=== PATIENT | male | born 1935 | race Caucasian/White ===

== ENCOUNTER 2017-12-07 14:27 | Observation (INO) | payer MEDICARE, OTHER ==
[~2017-12-07] VITALS: Ht 177.8 cm; Wt 77.1 kg
--- NOTE | ~2017-12-07 | CN ---
PATIENT NAME:NINI DIAZ MEDICAL RECORD: [id number] : 31 LOCATION:[facility] D.2113 ADMIT DATE: 12/07/17 ACCOUNT: [id number] CONSULTING PHYSICIAN: MARK BEAVERS MD REFERRING PHYSICIAN: NAN BRANNON DO DATE OF CONSULTATION: 12/08/2017 DIAGNOSIS: Syncope. HISTORY OF PRESENT ILLNESS: This is a gentleman who had an episode of syncope yesterday. No cardiac symptomatology. No palpitations or chest pain. His echocardiogram was performed today. It is normal. Telemetry has been normal. EKG is normal. Laboratory values are normal. Neurologic workup was normal as well. PHYSICAL EXAMINATION: GENERAL APPEARANCE: Well-nourished, well-developed, appears stated age. Level of distress, comfortable. PSYCHIATRIC: Mental status, alert, normal affect. Orientation, oriented to time, place and person. EYES: Lids and conjunctiva, noninjected. No discharge, no pallor. ENT: Lips, teeth, gums, normal dentition. Oropharynx, no cyanosis, no pallor. NECK: Carotid arteries, bilateral normal upstroke, no bruits, no thrills. JUGULAR VEINS: No jugular venous pressure or distention. CERVICAL LYMPH NODES: Nontender, nonenlarged. THYROID: Not enlarged. Nontender. No nodules. LUNGS: Respiratory effort, unlabored. CHEST: Normal curvature. No thoracic deformity. No chest wall tenderness. Percussion, resonant. Auscultation, clear. No wheezes, no rales, no rhonchi. CARDIOVASCULAR: Precordial exam, nondisplaced. No heaves or pericardial thrills. Rate and rhythm, regular. Heart sounds, normal S1, normal S2. No S3, no gallop, no rub. Systolic murmur, not heard. Diastolic murmur, not heard. EXTREMITIES: No cyanosis, no edema. Peripheral pulses, full and equal in all extremities, except as noted. No bruits appreciated. ABDOMEN: Soft, nondistended. Normal aorta. No bruit. Nontender. No masses. Liver, nontender, no hepatomegaly. Spleen, nontender, no splenomegaly. MUSCULOSKELETAL: No joint tenderness. No joint swelling. No erythema. NEUROLOGICAL: Normal gait, normal strength, normal tone. SKIN: Warm and dry. OVERALL IMPRESSION: Syncope, no reason to think this is cardiac in nature or cardiac testing is normal, no other cardiac workup or treatment is necessary. TRANSINT:[id number] Voice Confirmation ID: [id number] DOCUMENT ID: [id number] MARK BEAVERS MD at 1325 CC: [id number] DICTATION DATE: 12/08/17 1223 GROUP EXERCISE MANAGER: 12/08/17 1514 DIS IN 12/09/17 [place] [id number] [place] [id number]
--- NOTE | ~2017-12-07 | EC ---
PATIENT:NINI DIAZ DATE OF SERVICE: 12/07/17 SEX: M MEDICAL RECORD: [id number] DATE OF : 31 LOCATION:D.M2 D.211 AGE OF PATIENT: 82 ADMISSION DATE: 12/07/17 REFERRING PHYSICIAN: INTERPRETING PHYSICIAN: MARK WALKER MD ECHOCARDIOGRAM REPORT ECHO CHARGES 4 ECHO COMPLETE Date: 12/08 CLINICAL DIAGNOSIS: SYNCOPE ECHOCARDIOGRAPHIC MEASUREMENTS (adult normal given) AC root (d.<3.7cm) 3.3 cm LV Septum d (<1.2 cm> 1.6 cm Valve Excursion 1.2 cm LV Septum (systole) 1.8 cm Left Atria (s.<4.0cm> 3.1 cm LVPW d(<1.2cm) 1.5 cm RV (d.<2.3cm) 3.2 cm LVPW (sytole) 1.8 cm LV diastole(<5.6CM) 4.1 cm MV E-F(>70mm/sec) cm LV systole 3.1 cm LVOT Diameter 1.5 cm MV exc.(>10mm) 1.5 cm Est.ejection fraction (50-75%) % DOPPLER: LVIT cm/sec A 120 cm/sec E 86.0 cm/sec LA cm/sec RVSP 15 mmHg LVOT 122 cm/sec AOP1/2T m/s Asc. Ao 173 cm/sec RVOT 101 cm/sec RA cm/sec PA 139 cm/sec AV Gradient Peak 12.01mmHg AV Mean 5.54 mmHg AV Area 1.4 cm MV Gradient Peak 6.81 mmHg MV Mean 2.33 mmHg MV Area cm COMMENTS: Merchandising Representative: Edwin [place] Swing Grinder: 1 Dr. Walker TAPE# PACS Pericardial Effusion N DATE OF SERVICE: 12/08/2017 FINDINGS: 1. Left ventricular chamber size is within normal limits. Left ventricular systolic function is normal. Overall ejection fraction estimated at 55% to 60%. 2. Left atrium is within normal limits at 3.1 cm. Right atrium and right ventricle chamber sizes are mildly dilated. 3. Valvular structures have normal structure and motion. 4. Doppler interrogation only reveals mild aortic insufficiency. No other valvular insufficiency or stenosis. Pulmonary systolic pressure is normal, ECHOCARDIOGRAM REPORT [id number] NINI DIAZ estimated at 15 mmHg. 5. No evidence of pericardial effusion or left ventricular thrombus. TRANSINT:[id number] Voice Confirmation ID: [id number] DOCUMENT ID: [id number] MARK WALKER MD at 1325 CC: [id number] DICTATION DATE: 12/08/17 1258 AUTOMATION CONTROLS SPECIALIST: 12/08/17 1358 DIS IN 12/09/17 [place] [id number] [place] [id number]
[2017-12-07 14:45] VITALS: BP 112/52
[2017-12-07 14:49] LABS: BASOPHILS 0.1 % (0-2); HEMATOCRIT 36.9 % (42.0-54.0); HEMOGLOBIN 12.7 g/dL (13.5-17.5); IMMATURE GRANULOCYTES 0.3 % (0-5); LYMPHOCYTES 17.8 % (15-50); MCH 30.2 pg (26.0-34.0); MCHC 34.4 g/dL (31.0-37.0); MCV 87.9 fL (80.0-100.0); MEAN PLATELET VOLUME 10.3 fL (7.4-10.4); MONOCYTES 6.9 % (2-11); NEUTROPHILS 73.9 % (40-80); RDW 12.4 % (11.5-14.5); WBC 7.1 10x3/uL (4.8-10.8)
[2017-12-07 14:57] LABS: PLATELET COUNT 151 10x3/uL (130-400)
[2017-12-07 15:00] VITALS: BP 114/53
[2017-12-07 15:02] LABS: APTT 24.6 SECONDS (22.8-39.4); INR 1.08 (0.85-1.17); PROTIME 13.6 SECONDS (11.6-15.0)
[2017-12-07 15:06] LABS: ALBUMIN 3.4 g/dL (3.4-5.0); ANION GAP 9.9 mmol/L (8-16); BILIRUBIN - TOTAL 1.97 mg/dL (0.2-1.3); CALCIUM 8.8 mg/dL (8.5-10.1); CARBON DIOXIDE 31.1 mmol/L (21.0-32.0); CREATININE - SERUM 1.6 mg/dL (0.6-1.3); PROTEIN - SERUM 6.6 g/dL (6.4-8.2)
[2017-12-07 15:41] LABS: CKMB 0.4 U/L (0.0-3.6); CREATINE KINASE 59 UL (21-232)
[2017-12-07 15:43] LABS: TROPONIN-I < 0.017 ng/mL (0.000-0.060)
[2017-12-07 19:01] VITALS: BP 161/76
[2017-12-07 20:00] VITALS: BP 187/85
[2017-12-07 20:14] LABS: CKMB 0.6 U/L (0.0-3.6); CREATINE KINASE 58 UL (21-232)
[2017-12-07 20:25] LABS: TROPONIN-I < 0.017 ng/mL (0.000-0.060)
[2017-12-07 20:38] LABS: APPEARANCE CLEAR (CLEAR); BILIRUBIN NEGATIVE (NEGATIVE); COLOR YELLOW (YELLOW); GLUCOSE 1000 mg/dL (NEGATIVE); KETONE NEGATIVE (NEGATIVE); NITRITE NEGATIVE (NEGATIVE); PROTEIN NEGATIVE (NEGATIVE); SPECIFIC GRAVITY 1.015 (1.005-1.020); UROBILINOGEN NORMAL (NORMAL)
[2017-12-07 21:26] VITALS: BP 180/86
[2017-12-07] MEDS ORDERED: NAMENDA10 MG PO (21:49)
[2017-12-07] MEDS ORDERED: PRAVACHOL40 MG PO (21:50)
[2017-12-07] MEDS ORDERED: NORMODYNE / TR100 MG PO (21:50)
[2017-12-07] MEDS ORDERED: LISINOPRIL5 MG PO (21:50)
[2017-12-07 23:15] VITALS: Ht 177.8 cm; Wt 77.1 kg
[2017-12-08 00:45] VITALS: BP 152/64
[2017-12-08 02:54] LABS: CKMB 0.5 U/L (0.0-3.6); CREATINE KINASE 66 UL (21-232)
[2017-12-08 02:55] LABS: TROPONIN-I < 0.017 ng/mL (0.000-0.060)
[2017-12-08 05:24] LABS: BASOPHILS 0.2 % (0-2); EOSINOPHILS 1.7 % (0-7); HEMATOCRIT 36.5 % (42.0-54.0); HEMOGLOBIN 12.4 g/dL (13.5-17.5); IMMATURE GRANULOCYTES 0.3 % (0-5); LYMPHOCYTES 26.5 % (15-50); MCH 29.8 pg (26.0-34.0); MCV 87.7 fL (80.0-100.0); MEAN PLATELET VOLUME 10.7 fL (7.4-10.4); MONOCYTES 8.4 % (2-11); NEUTROPHILS 62.9 % (40-80); PLATELET COUNT 155 10x3/uL (130-400); RBC 4.16 10x6/uL (4.20-6.10); RDW 12.3 % (11.5-14.5); WBC 6.6 10x3/uL (4.8-10.8)
[2017-12-08 05:38] LABS: ANION GAP 10.1 mmol/L (8-16); CALCIUM 8.4 mg/dL (8.5-10.1); CARBON DIOXIDE 29.6 mmol/L (21.0-32.0); CREATININE - SERUM 1.3 mg/dL (0.6-1.3); POTASSIUM - SERUM 3.7 mmol/L (3.5-5.1)
[2017-12-08 06:29] VITALS: BP 146/67
[2017-12-08 08:21] LABS: CKMB 0.2 U/L (0.0-3.6); CREATINE KINASE 102 UL (21-232)
[2017-12-08 08:24] LABS: TROPONIN-I < 0.017 ng/mL (0.000-0.060)
[2017-12-08 08:53] VITALS: BP 144/54
[2017-12-08 12:02] VITALS: BP 170/71
[2017-12-08 15:31] VITALS: BP 162/72
[2017-12-08 22:11] VITALS: BP 171/74
[2017-12-09 00:41] VITALS: BP 174/86
[2017-12-09 03:27] LABS: BASOPHILS 0.2 % (0-2); EOSINOPHILS 2.8 % (0-7); HEMATOCRIT 37.1 % (42.0-54.0); HEMOGLOBIN 12.8 g/dL (13.5-17.5); IMMATURE GRANULOCYTES 0.3 % (0-5); MCH 30.1 pg (26.0-34.0); MCHC 34.5 g/dL (31.0-37.0); MCV 87.3 fL (80.0-100.0); MEAN PLATELET VOLUME 10.5 fL (7.4-10.4); MONOCYTES 8.4 % (2-11); NEUTROPHILS 52.3 % (40-80); PLATELET COUNT 148 10x3/uL (130-400); RBC 4.25 10x6/uL (4.20-6.10); RDW 12.3 % (11.5-14.5); WBC 6.1 10x3/uL (4.8-10.8)
[2017-12-09 04:06] LABS: ALBUMIN 3.3 g/dL (3.4-5.0); BILIRUBIN - TOTAL 1.28 mg/dL (0.2-1.3); CALCIUM 8.6 mg/dL (8.5-10.1); CREATININE - SERUM 1.2 mg/dL (0.6-1.3); PROTEIN - SERUM 6.6 g/dL (6.4-8.2)
[2017-12-09 05:34] VITALS: BP 212/98
[2017-12-09 07:56] VITALS: BP 190/74
[2017-12-09] MEDS ORDERED: LISINOPRIL10 MG PO (10:35)
[2017-12-09] MEDS ORDERED: NORVASC5 MG PO (10:35)
[2017-12-09 10:36] VITALS: BP 162/74
== END 2017-12-09 15:00 ==
LOC: D.ER 14:27 → D.M2 19:26 → OBSVTIME 20:00 → D.M2 12-09 15:00
PROVIDERS: Family Medicine
DX: R55 Syncope and collapse (principal); I10 Essential (primary) hypertension; E86.0 Dehydration; F03.90 Unspecified dementia, unspecified severity, without behavioral disturbance, psychotic disturbance, mood disturbance, and anxiety; Z86.73 Personal history of transient ischemic attack (TIA), and cerebral infarction without residual deficits